=== PATIENT | female | born 2000 | race Caucasian/White ===

== ENCOUNTER 2020-02-08 11:55 | Outpatient (REF) | payer MEDICAID, SELFPAY ==
--- NOTE | 2020-02-08 11:00 | PAPFT_PTH ---
PATIENT: Yamila Anderson LOC: [facility] U#:[id number] AGE/SX: 19/F ROOM: RE02/08/[address]: YANN Dill : 2000 BED: DIS: 02/08/2020 SPEC #: [id number] RECD: 02/08/20 12:21 STATUS: JONATHAN HUGHES #: [id number] HAMIDA: 02/08/20 11:[address]: Roma Kovacs DEPT: [facility] RECD BY: Naima Norris ENTERED: 02/08/20 12:21 SP TYPE: PAPFT OTHR DR: Nga Fuchs Tissues: 1 - CX/ENDOCX FOR PAP SMEARS Procedures: PAP THIN PREP/[facility] Screening Comments: [id number]
[2020-02-12 09:10] LABS: Chlamydia Result Negative (Negative); GC Result Negative (Negative)
== END 2020-02-08 12:15 ==
LOC: LBN 11:55
PROVIDERS: PCP Family Medicine; Visit Provider Nurse Practitioner Family
DX: Z11.3 Encounter for screening for infections with a predominantly sexual mode of transmission (principal); Z12.4 Encounter for screening for malignant neoplasm of cervix
CPT/HCPCS: 87491; 87591; 88142

== ENCOUNTER 2021-07-28 14:30 | Outpatient (REF) | payer MEDICAID, SELFPAY ==
--- NOTE | 2021-07-28 09:30 | PAPFT_PTH ---
PATIENT: Yamila Anderson LOC: [facility] U#:[id number] AGE/SX: 20/F ROOM: RE07/28/[address]: YANN Dill : 2000 BED: DIS: 07/28/2021 SPEC #: [id number] RECD: 07/28/21 18:30 STATUS: JONATHAN REAnselmo #: [id number] HAMIDA: 07/28/21 09:[address]: Roma Kovacs DEPT: [facility] Cytology RECD BY: Naima Norris ENTERED: 07/28/21 18:30 SP TYPE: PAPFT OTHR DR: Nga Fuchs Tissues: 1 - CX/ENDOCX FOR PAP SMEARS Procedures: PAP THIN PREP/[facility] Screening Comments: [id number]
== END 2021-07-28 14:31 | disposition home or self-care (01) ==
LOC: LBN 14:30
PROVIDERS: PCP Family Medicine; Visit Provider Nurse Practitioner Family
DX: Z12.4 Encounter for screening for malignant neoplasm of cervix (principal)
CPT/HCPCS: 88142

== ENCOUNTER 2023-11-29 10:35 | Outpatient (REF) | payer MEDICAID, SELFPAY ==
--- NOTE | 2023-11-29 10:15 | PAPFT_PTH ---
PATIENT: Yamila Anderson LOC: [facility] U#:[id number] AGE/SX: 23/F ROOM: RE11/29/[address]: Jane Moreno NP : 2000 BED: DIS: 11/29/2023 SPEC #: [id number] RECD: 11/29/23 12:49 STATUS: JONATHAN REAnselmo #: [id number] HAMIDA: 11/29/23 10:[address]: Jane Moreno NP DEPT: [facility] Cytology RECD BY: Naima Norris ENTERED: 11/29/23 12:49 SP TYPE: PAPFT OTHR DR: Nga Fuchs Tissues: 1 - CX/ENDOCX FOR PAP SMEARS Procedures: PAP THIN PREP/[facility] Screening HPV DNA PROBE Comments: [id number]
== END 2023-11-29 10:36 | disposition home or self-care (01) ==
LOC: LBN 10:35
PROVIDERS: PCP Family Medicine; Visit Provider Nurse Practitioner Women's Health
DX: Z12.4 Encounter for screening for malignant neoplasm of cervix (principal)
CPT/HCPCS: 88142; 87624